=== PATIENT | male | born 1985 | race American Indian/Alaskan Native ===

== ENCOUNTER 2016-12-10 10:57 | Outpatient (CLI) | payer OTHER ==
[2016-12-10 11:32] LABS: Hematocrit 40.3 % (35.5-45.6); Hemoglobin 13.9 gm/dl (11.8-15.2); Mean Corpuscular HGB Conc 34 % (32-34); Mean Corpuscular Hemoglobin 32 pg (28-32); Mean Corpuscular Volume 93 fl (84-94); Platelet Count 226 K/mm3 (140-440); Red Blood Count 4.33 M/mm3 (3.65-5.03); Red Cell Distribution Width 13.9 % (13.2-15.2)
[2016-12-10 12:02] LABS: Blastocytes % (Manual) 0 %
[2016-12-10 12:03] LABS: Basophils % (Manual) 0 % (0.0-1.8); White Blood Count 3.8 K/mm3 (4.5-11.0)
[2016-12-10 12:06] LABS: RBC Morphology Normal
[2016-12-10 12:07] LABS: Diff Status Complete; Platelet Estimate Consistent w Auto
[2016-12-10 12:10] LABS: Alanine Aminotransferase 16 units/L (7-56); Albumin 3.7 g/dL (3.9-5); Albumin/Globulin Ratio 0.8 %; Alkaline Phosphatase 66 units/L (35-129); Anion Gap 16 mmol/L; BUN/Creatinine Ratio 24.28; Blood Urea Nitrogen 17 mg/dL (9-20); Calcium 8.8 mg/dL (8.4-10.2); Carbon Dioxide 24 mmol/L (22-30); Chloride 102.9 mmol/L (98-107); Glucose 80 mg/dL (75-100); Potassium 4.5 mmol/L (3.6-5.0); Sodium 138 mmol/L (137-145); Total Protein 8.4 g/dL (6.3-8.2); Transferrin 208 mg/dl (180-329)
[2016-12-12 14:19] LABS: Protein S, Free 65 % normal (57-171); Protein S, Total 82 % (70-140)
== END 2016-12-10 10:58 | disposition home or self-care (01) ==
LOC: LAB 10:57
PROVIDERS: ATTEND Internal Medicine
DX: B20 Human immunodeficiency virus [HIV] disease (principal); F43.10 Post-traumatic stress disorder, unspecified; S01.80XA Unspecified open wound of other part of head, initial encounter; F32.9 Major depressive disorder, single episode, unspecified; L98.8 Other specified disorders of the skin and subcutaneous tissue; Z87.891 Personal history of nicotine dependence; Z79.899 Other long term (current) drug therapy; X58.XXXA Exposure to other specified factors, initial encounter; Y93.89 Activity, other specified; Y92.89 Other specified places as the place of occurrence of the external cause; Y99.8 Other external cause status
CPT/HCPCS: 36415; 80053; 84466; 85007; 85025; 85305

== ENCOUNTER 2017-02-17 13:10 | Emergency (ER) | payer SELFPAY ==
--- NOTE | 2017-02-17 13:34 | Emergency Department Report ---
Chief Complaint: Extremity Injury, Lower Stated Complaint: LEFT LEG PAIN Time Seen by Provider: 02/17/17 13:29 - HPI History of Present Illness: PT c/o Left leg pain x 1 week. PT States pain has worsened since Friday and now the leg is swollen. - ROS Review of Systems: + swelling + pain with walking - Exam Vital Signs: Vital Signs 02/17/17 13:21 Temperature 97.5 F L Pulse Rate 80 Respiratory 17 Rate Blood Pressure 116/77 O2 Sat by Pulse 100 Oximetry Physical Exam: no calf tenderness pt in skinny jeans. difficult to evaluate MSE screening note: Focused history and physical exam performed. Due to findings the following was ordered: labs, us ED Disposition for MSE Condition: Stable
[2017-02-17 14:12] LABS: Basophils % (Auto) 0.6 % (0.0-1.8); Eosinophils % (Auto) 2.7 % (0.0-4.3); Hematocrit 42.5 % (35.5-45.6); Hemoglobin 14.3 gm/dl (11.8-15.2); Mean Corpuscular HGB Conc 34 % (32-34); Mean Corpuscular Hemoglobin 32 pg (28-32); Mean Corpuscular Volume 94 fl (84-94); Platelet Count 205 K/mm3 (140-440); Red Cell Distribution Width 14.2 % (13.2-15.2); White Blood Count 4.7 K/mm3 (4.5-11.0)
[2017-02-17 14:19] LABS: Anion Gap 16 mmol/L; BUN/Creatinine Ratio 18.33; Blood Urea Nitrogen 11 mg/dL (9-20); Calcium 8.8 mg/dL (8.4-10.2); Carbon Dioxide 24 mmol/L (22-30); Chloride 101.8 mmol/L (98-107); Creatine Kinase 209 units/L (55-170); Glucose 85 mg/dL (75-100); Potassium 4.4 mmol/L (3.6-5.0); Sodium 137 mmol/L (137-145)
[2017-02-17] MEDS ORDERED: TYLENOL #3 PO ONE (18:42)
--- NOTE | 2017-02-17 18:52 | XRay Report ---
FINAL REPORT PROCEDURE: Left femur. TECHNIQUE: AP and lateral views. HISTORY: Left leg pain. COMPARISON: No prior studies are available for comparison. FINDINGS: The bones appear intact without fracture or dislocation. The joint spaces appear normal. The soft tissues are unremarkable. IMPRESSION: Normal study.
[2017-02-17 19:22] VITALS: BP 137/86
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
== END 2017-02-17 19:20 | disposition home or self-care (01) ==
LOC: ED 13:10
DX: M79.605 Pain in left leg (principal); F12.10 Cannabis abuse, uncomplicated; Z87.891 Personal history of nicotine dependence
CPT/HCPCS: 36415; 80048; 82550; 85025